=== PATIENT | female | born 1955 | race Caucasian/White ===

== ENCOUNTER → 2016-03-09 | Outpatient (CLI) | payer BC ==
[~2016-03-09] MED LIST: ATVUNK; BACI1OIN22 TOP; ESTRADIOL GT; PRZCUNK
--- NOTE | 2016-03-09 16:40 | MAMMOGRAPHY REPORT ---
BILATERAL DIGITAL SCREENING MAMMOGRAM TOMOSYNTHESIS WITH CAD: 03/09/2016 CLINICAL HISTORY: Routine screening. Patient has no complaints. TECHNIQUE: Breast tomosynthesis in addition to standard 2D mammography was performed. Current study was also evaluated with a Computer Aided Detection (CAD) system. COMPARISON: Comparison is made to exams dated: 01/19/2015 mammogram, 04/25/2011 mammogram, 07/14/2009 mammogram - [facility], 07/13/2008, and 01/07/2007. BREAST COMPOSITION: There are scattered areas of fibroglandular density in both breasts. FINDINGS: No suspicious masses, calcifications, or areas of architectural distortion are noted in e ither breast. There has been no significant interval change compared to prior exams. IMPRESSION: ACR BI-RADS CATEGORY 1: NEGATIVE There is no mammographic evidence of malignancy. A 1 year screening mammogram is recommended. The p atient will receive written notification of the results. Approximately 10% of breast cancers are not detected with mammography. A negative mammographic repor t should not delay biopsy if a clinically suggestive mass is present. Mayra Matt M.D. ah/:03/09/2016 13:57:05 Yeast Washer: Dary Huffman RT(R)(M), [facility] letter sent: Normal 1/2 BI-RADS Code: ACR BI-RADS Category 1: Negative
== END | disposition home or self-care (01) ==
LOC: C.MAMM 09:10
PROVIDERS: ATTEND Obstetrics & Gynecology
DX: Z12.31 Encounter for screening mammogram for malignant neoplasm of breast (principal)

== ENCOUNTER → 2016-12-13 | Outpatient (CLI) | payer BC ==
[2016-12-13 13:52] LABS: ALT/SGPT 12 U/L (12-78); BLOOD UREA NITROGEN 17 mg/dl (7-18); BUN/CREATININE RATIO 18.6 (10-20); CALCIUM 8.8 mg/dl (8.5-10.1); CARBON DIOXIDE 30 mmol/L (21-32); CHLORIDE 105 mmol/L (98-107); CHOLESTEROL 213 mg/dl (0-200); CREATININE 0.91 mg/dl (0.60-1.20); GLUCOSE 90 mg/dl (70-99); POTASSIUM 4.2 mmol/L (3.5-5.1); SODIUM 138 mmol/L (136-145); TRIGLYCERIDES 76 mg/dl (0-150); VERY LOW DENSITY LIPOPROT CALC 15 mg/dl
[2016-12-13 14:03] LABS: ALB/GLOB RATIO 1.1 (0.9-2); ALKALINE PHOSPHATASE 68 U/L (45-117); AST/SGOT 24 U/L (15-37); HDL CHOLESTEROL 70 mg/dl; LDL CHOLESTEROL CALCULATED 128 mg/dl
== END | disposition home or self-care (01) ==
LOC: C.LABBC 10:41
PROVIDERS: ATTEND Internal Medicine
DX: E78.5 Hyperlipidemia, unspecified (principal)

== ENCOUNTER → 2017-03-12 | Outpatient (CLI) | payer BC, OTHER ==
--- NOTE | 2017-03-12 15:07 | MAMMOGRAPHY REPORT ---
BILATERAL DIGITAL SCREENING MAMMOGRAM TOMOSYNTHESIS WITH CAD: 03/12/2017 CLINICAL HISTORY: Routine screening. Patient has no complaints. TECHNIQUE: Bilateral breast tomosynthesis in addition to standard 2D mammography was performed. Curre nt study was also evaluated with a Computer Aided Detection (CAD) system. COMPARISON: Comparison is made to exams dated: 03/09/2016 mammogram, 01/19/2015 mammogram, 04/25/2011 m ammogram, 07/14/2009 mammogram - [facility], 07/13/2008, and 01/17/2007. BREAST COMPOSITION: There are scattered areas of fibroglandular density in both breasts. FINDINGS: There is a 14 mm focal asymmetry in the subareolar versus 6:00 anterior left breast that c ould represent normal fibroglandular tissue although additional spot compression tomosynthesis views and possible ultrasound are recommended. A questionable area of architectural distortion in the 12:0 0 to 1:00 middle one third of the left breast warrant additional spot compression tomosynthesis views and possible ultrasound. No other suspicious mass, architectural distortion or cluster of microcalcifications is seen. Bilate rally. IMPRESSION: ACR BI-RADS CATEGORY 0: INCOMPLETE EVALUATION: NEED ADDITIONAL IMAGING EVALUATION The 14 mm focal asymmetry in the anterior left breast and questionable area of architectural distorti on in the left upper outer quadrant need additional imaging evaluation. The patient will be called to schedule an appointment. Approximately 10% of breast cancers are not detected with mammography. A negative mammographic report should not delay biopsy if a clinically suggestive mass is present. Xin Valentine M.D. ay/:03/12/2017 14:46:30 Tin Tie Machine Operator Automatic: Dary GONZÁLES(R)(M), [facility] letter sent: Addl Imaging 0 BI-RADS Code: ACR BI-RADS Category 0: Incomplete Evaluation: Need Additional Imaging Evaluation
== END | disposition home or self-care (01) ==
LOC: C.MAMM 09:06
PROVIDERS: ATTEND Obstetrics & Gynecology
DX: Z12.31 Encounter for screening mammogram for malignant neoplasm of breast (principal); N64.89 Other specified disorders of breast

== ENCOUNTER → 2017-03-21 | Outpatient (CLI) | payer BC, OTHER ==
--- NOTE | 2017-03-21 15:10 | MAMMOGRAPHY REPORT ---
UNILATERAL LEFT DIGITAL DIAGNOSTIC MAMMOGRAM TOMOSYNTHESIS AND TARGETED LEFT ULTRASOUND: 03/21/2017 CLINICAL HISTORY: Callback from screening mammogram for left breast asymmetry and questionable left b reast architectural distortion. TECHNIQUE: Breast tomosynthesis in addition to standard 2D mammography was performed. Spot compress ion left CC and MLO 2-D and tomosynthesis images were obtained. COMPARISON: Comparison is made to exams dated: 03/12/2017 mammogram, 03/09/2016 mammogram, 01/19/2015 ma mmogram, 04/25/2011 mammogram, 07/14/2009 mammogram - [facility], and 07/13/2008. BREAST COMPOSITION: There are scattered areas of fibroglandular density in the left breast. FINDINGS: The previously described asymmetry within the left subareolar/6:00 breast effaces to a base line appearance on the additional spot compression views, and appears similar to prior exams includin g July 2008 exam. Spot compression views demonstrate an asymmetry in the left 12:00 breast which appe ars stable dating back to the 2006 exam, without clear associated distortion seen on the tomosynthesi s images. Targeted ultrasound was performed of the area of the asymmetry in the left subareolar/6:00 breast as well as the area of questionable distortion in the left 12:00 breast. Sonographically normal tissue is seen in these regions, without evidence of a mass or other suspicious sonographic abnormality. IMPRESSION: ACR BI-RADS CATEGORY 2: BENIGN, TARGETED ULTRASOUND ACR BI-RADS CATEGORY 2: BENIGN 1. The left subareolar breast asymmetry effaces on the additional views, without corresponding sonog raphic abnormality evident. The finding is benign and compatible with normal fibroglandular tissue. 2. No clear architectural distortion seen in the left 12:00 breast on the additional spot compressio n views. An asymmetry in this region appears stable dating back to the 2006 exam mammographically, w ithout corresponding sonographic abnormality evident. Given the long-term stability, the finding is benign and felt to represent normal fibroglandular tissue. There is no mammographic or targeted sonographic evidence of malignancy. A 1 year screening mammogram is recommended. The patient has been verbally notified of the results. Approximately 10% of breast cancers are not detected with mammography. A negative mammographic report should not delay biopsy if a clinically suggestive mass is present. Mayra Matt M.D. ah/:03/21/2017 11:33:25 Institution Librarian: Teo GONZÁLES([place])(M), [facility] letter sent: Normal /2 BI-RADS Code: ACR BI-RADS Category 2: Benign Ultrasound BI-RADS: ACR BI-RADS Category 2: Benign
== END | disposition home or self-care (01) ==
LOC: C.MAMM 11:02
PROVIDERS: ATTEND Obstetrics & Gynecology
DX: R92.8 Other abnormal and inconclusive findings on diagnostic imaging of breast (principal)

== ENCOUNTER 2017-06-20 20:42 | Emergency (ER) | payer OTHER ==
[~2017-06-20] VITALS: Ht 167.6 cm; Wt 65.7 kg
[2017-06-20 20:44] VITALS: Ht 167.6 cm; Wt 65.7 kg
[2017-06-20] MEDS ORDERED: PROPARACAINE HCL 0.5% OP SOLN 15 ML BTL OP STA (21:33)
--- NOTE | 2017-06-20 22:00 | EMERGENCY ROOM VISIT NOTE ---
ED Visit Note First contact with patient: 20:51 The patient was seen and examined with Lulu Beatty PA-C. I agree with the history, physical and findings. Please see the note for disposition and details. I did perform a limited bedside ocular ultrasound of the affected eye and did not see any obvious retinal detachment. A nondilated funduscopic examination by me did not reveal any obvious abnormalities either. By the history I suspect a possible vitreous detachment. Ophthalmology was consulted. The patient will follow-up tomorrow in the office.
--- NOTE | 2017-06-20 22:16 | EMERGENCY ROOM VISIT NOTE ---
History First contact with patient: 20:51 Chief Complaint: EYE ASSESSMENT Stated Complaint: EYE-LIGHTS FLASHING-FLOATERS History of Present Illness The patient is a 62 year old female who presents to the Emergency Room with complaints of problems with her right eye that started earlier today. The patient reports getting out of bed. She accidentally tripped striking the left side of her head on the dresser. She did not lose consciousness. She denies any headache or neck pain. No dizziness. The patient reports taking a nap. When she woke up, she saw a very large floater in the lateral aspect of her right eye. She then reports seeing flashing light in the right lateral aspect of her vision in the right eye throughout the night. This is what prompted her to come to the emergency department for evaluation. She also reports some sensitivity to light. No foreign body sensation. She sometimes wears glasses for distance. She does not wear contact lenses. Review of Systems 6 system review negative. Please see pertinent positives in the history of present illness section. Past Medical/Surgical History Depression Social History Smoking Status: Never Smoker Occupation Status: employed Current/Historical Medications Scheduled Bacitracin Oph (Bacitracin Oph), 1 APPLN TOP TID Miscellaneous Medications , 0.025 MG GT Fluoxetine (Prozac Unknown Dose) Lorazepam (Ativan Unknown Dose) Physical Exam Vital Signs Date Time Temp Pulse Resp B/P (MAP) Pulse Ox O2 Delivery O2 Flow Rate FiO2 06/20/17 23:20 36.5 73 20 109/67 96 06/20/17 20:44 36.5 73 20 109/67 96 Room Air Right Eye Acuity: 20/50 (effected eye) Left Eye Acuity: 20/25 Physical Exam VITALS: Vitals are noted on the nurse's note and reviewed by myself. Vital signs stable. GENERAL: 62-year-old female, in no acute distress, nondiaphoretic, well- developed well-nourished. SKIN: The skin was without rashes, erythema, edema, or bruising. HEAD: Normocephalic atraumatic. EYES: Pupils equal round and reactive to light and accommodation. Conjunctivae without injection, sclerae without icterus. Extraocular movements intact. Insert Slit Lamp Exam Slit Lamp Examination was performed of the right eye(s). Alcaine drops were applied to the affected eye(s) for proper anesthetization. The affected eye(s) were stained with Fluorescein stain to precipitate adequate visualization of any conjunctival/scleral excoriations or ulcers. The patients face was comfortably rested on the chin guard of the slit lamp apparatus. Examination with regular light reveals no significant abnormalities of the cornea or anterior chamber. Insert Optic Tonometry Alcaine drops were applied to the eyes bilaterally for adequate anesthetization. A clean tip protector was applied to the Tonometer. The Tonometry pen was properly calibrated prior to attaining orbital pressures. The pressures in the LEFT eye were found to be 13 and 15. The pressures in the RIGHT eye were found to be 12 and 13 patient tolerated the procedure well and no complications were met. MUSCULOSKELETAL: Strength 5/5 throughout. NEURO: Patient was alert and oriented to person place and time. Normal sensation to touch. No focal neurological deficits. Medical Decision & Procedures ED Course The patient was seen and examined by myself and my supervising physician The case was discussed with ophthalmology The patient was reassessed and resting comfortably. We thoroughly reviewed discharge instructions. She voiced understanding. She was comfortable being discharged home. The patient was discharged in fair condition Medical Decision Differential diagnosis: Retinal detachment, uveitis, corneal abrasion, corneal laceration, globe rupture, glaucoma, foreign body This patient is a 62-year-old female presents to the emergency department with complaints of floaters and flashing lights in the lateral aspect of her right eye. On exam, I cannot find any abnormalities with the anterior chamber. No signs of uveitis or hyphema. No signs of foreign body or abrasion. Dr. Butler performed an ultrasound of the eye. There were no signs of retinal detachment. These findings were discussed with Dr. Boyd, ophthalmology. His thought was this is possibly a vitreous detachment. She will avoid sudden head movements and rest. She will call the nursing program chair office first thing tomorrow morning for a follow-up appointment. The patient was comfortable with this plan, and she was discharged in good condition This chart was completed in part utilizing [employer] Speech Voice Recognition software. Attempts were made to minimize the grammatical errors, random word insertions, pronoun errors and incomplete sentences. Any formal questions or concerns about the content, text or information contained within the body of this dictation should be directly addressed to the provider for clarification. Medication Reconcilliation Current Medication List: was personally reviewed by me Blood Pressure Screening Patient's blood pressure: Normal blood pressure Impression Primary Impression: Floaters in visual field Departure Information Dispostion Home / Self-Care Condition GOOD Referrals Dary Gaitan D.O. (PCP) Aries Boyd MD Patient Instructions My [facility] Additional Instructions Please rest. No strenuous activity tonight. Avoid sudden head movements. Please call Dr. Boyd's office first thing tomorrow morning for a follow-up appointment. Please do not hesitate to return to the emergency department with any new or concerning symptoms; especially, decreased vision or severe pain
[2017-06-20 23:20] VITALS: BP 109/67; PULSE 73; TEMP 36.5; O2SAT 96
== END 2017-06-20 23:21 | disposition home or self-care (01) ==
LOC: C.EDB 20:43 → C.EDD 23:21
DX: H57.11 Ocular pain, right eye (principal); W19.XXXA Unspecified fall, initial encounter

== ENCOUNTER 2024-06-23 06:00 | Observation (INO) ==
[2024-06-23] MEDS: ONDANSETRON INJ 2 MG/ML 2 ML VIAL IV STA (06:29)
[2024-06-23] MEDS: MoRPHine SULFATE 4 MG/ML 1 ML CARP\\VIAL IV STA ×2 (06:29→07:27)
[2024-06-23] MEDS: SODIUM CHLORIDE 0.9% 1,000 ML IV ONE (06:29)
--- NOTE | 2024-06-23 06:29 | Emergency Department Note ---
Impression & Plan Elevated troponin Admission ED Provider Note HPI: History obtained from patient. The patient is a 69-year-old female with history of chronic pain, fibromyalgia, hyperlipidemia, who presents to the emergency department with a chief complaint of abdominal pain, diarrhea, and vomiting. Patient states she has had the symptoms for about the past 3 to 4 hours. Patient denies any chest pain or shortness of breath. On arrival here to the ED the patient is moaning in discomfort from the pain and the nausea. She is able to answer my questions appropriately, she is saturating well on room air and she is otherwise hemodynamically stable on arrival. ROS: - Per HPI Differential Diagnosis: Viral gastroenteritis, acute appendicitis, acute cholecystitis, diverticulitis flare, acute colitis, ACS, aortic dissection, amongst other potential pathologies. *Outpatient medications and allergy history reviewed. 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 Lab work shows a mild leukocytosis at 13.13, hemoglobin is normal, platelet count is normal, CMP shows a mild hypokalemia, serum bicarbonate level is reduced at 17. Troponin is elevated at 81 although patient denies any chest pain or shortness of breath. EKG per my interpretation does not show any acute ischemic changes. CT imaging of the abdomen and pelvis was obtained, there are changes consistent with a nonspecific colitis. I suspect she likely has a viral gastroenteritis of some sort. Patient is also noted to have dilatation of the common bile duct although she has no transaminitis and her bilirubin is normal. There is no specific lesion or stone noted per the interpreting radiologist. 2+ ketones are noted on urinalysis but no obvious infection. Given the elevation in the patient's troponin with her abdominal pain, she will be admitted to the hospital for further management. Patient states that she feels improved on my reassessment, she is in agreement for admission, case was discussed with the on-call midlevel provider for [facility] and the patient was placed for admission in stable condition for further care to the service of the [facility] hospitalist (Dr. Redmond). Consultants/Discussions held with other healthcare providers: - Hospitalist, Dr. Redmond Disposition discussion held by myself with: - Patient Diagnosis: 1. Abdominal pain, acute 2. Elevated troponin, acute, nonspecific 3. Nausea and vomiting, acute Disposition: Admission Stephon Nice DO Emergency Medicine Past Med/Surg History Problem List (Updated 06/23/24 @ 13:26 by Stephon Nice DO) Elevated troponin (Acute) Common bile duct dilatation Colitis Chronic pain (Acute) Medical History Abnormal mammogram Cervical high risk human papillomavirus (HPV) DNA test positive Diastasis of muscle Hormone replacement therapy (HRT) Hyperlipidemia Depression Fibromyalgia Atypical glandular cells on vaginal Papanicolaou smear HPV negative History of Lyme disease History of arthritis Surgical History History of right cataract surgery Hx of thumb surgery Hx of ventral hernia repair History of esophagogastroduodenoscopy (EGD) Hx of nasal septoplasty Hx of colonoscopy H/O colposcopy with cervical biopsy History of hysterectomy, supracervical History of back surgery H/O bilateral oophorectomy Family History Mother Sleep apnea Hyperlipidemia Daughter Bipolar disorder Father Myocardial infarction, Onset Age: 73 Pituitary carcinoma Grandmother (Maternal) Uterine cancer Denies family history of Ovarian cancer Breast cancer Colorectal cancer Social History Smoking Status: Former smoker Second Hand Exposure: No; Do You Dip or Chew Tobacco: No; Hx Alcohol Use: No Hx Substance Use: No Preferred Language: Kiswahili Communication Ability: Effective 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 Operator Required: No Beliefs That Will Affect Care: None Current Living Situation: Alone Feels Safe at Home: Yes Assistive Devices: Glasses Allergies Allergies Allergy/AdvReac Type Severity Reaction Status Date / Time meloxicam [From Mobic] AdvReac Diarrhea Verified 06/23/24 08:15 Home Meds Home Medications Medication Instructions Recorded Confirmed fluoxetine 40 mg capsule 40 mg PO QAM 03/13/19 06/23/24 estradiol 0.05 mg/24 hr semiweekly 0.05 patch topical Q3D 07/27/22 06/23/24 transdermal patch trazodone 50 mg tablet 50 mg PO HS 07/27/22 06/23/24 Results & Data (ED) Vital Signs Vital Signs - 24 hr 06/23/24 05:47 06/23/24 06:12 06/23/24 06:30 Temperature Temperature Source Pulse Rate 63 72 56 L Pulse Rate [Apical] Pulse Rhythm Regular Pulse Strength Normal Respiratory Rate 19 19 Respiratory Effort / Characteristics Non-Labored Spontaneous Respiratory Depth Normal Respiratory Pattern Regular Blood Pressure 124/66 139/77 Blood Pressure [Left Arm] Blood Pressure Mean 85 110 Blood Pressure Mean [Left Arm] Blood Pressure Position Sitting Pulse Oximetry 99 100 Oxygen Delivery Method Room Air Room Air Sepsis Recent Fever Within 48 Hours No Sepsis New/Unexplained Change in Mental Status N/A Sepsis Action Taken by Nursing No Action Required 06/23/24 09:00 06/23/24 10:14 06/23/24 11:13 Temperature Temperature Source Pulse Rate 84 Pulse Rate [Apical] 51 L 72 Pulse Rhythm Pulse Strength Respiratory Rate 12 19 Respiratory Effort / Characteristics Respiratory Depth Respiratory Pattern Blood Pressure Blood Pressure [Left Arm] 118/59 L 92/52 L Blood Pressure Mean Blood Pressure Mean [Left Arm] 78 65 Blood Pressure Position Pulse Oximetry 94 95 Oxygen Delivery Method Room Air Room Air Sepsis Recent Fever Within 48 Hours Sepsis New/Unexplained Change in Mental Status Sepsis Action Taken by Nursing 06/23/24 12:54 06/23/24 13:01 Temperature 36.4 C L 36.4 C L Temperature Source Oral Oral Pulse Rate 68 Pulse Rate [Apical] 68 Pulse Rhythm Pulse Strength Respiratory Rate 23 23 Respiratory Effort / Characteristics Respiratory Depth Respiratory Pattern Blood Pressure 106/72 Blood Pressure [Left Arm] 106/72 Blood Pressure Mean Blood Pressure Mean [Left Arm] 83 Blood Pressure Position Pulse Oximetry 98 98 Oxygen Delivery Method Room Air Room Air Sepsis Recent Fever Within 48 Hours Sepsis New/Unexplained Change in Mental Status Sepsis Action Taken by Nursing Laboratory Data 06/23/24 06:40 06/23/24 06:40 Lab Results 06/23/24 06/23/24 06/23/24 Range/Units 06:40 08:27 08:32 WBC 13.13 H (4.8-10.8) K/ul RBC 4.73 (4.20-5.40) M/uL Hgb 13.5 (12.0-16.0) g/dl Hct 39.6 (37.0-47.0) % MCV 83.7 (80.0-100.0) fL MCH 28.5 (25.0-34.0) pg MCHC 34.1 (32.0-36.0) g/dL RDW Std Deviation 38.5 (36.4-46.3) fL RDW Coeff of Kenna 12.6 (11.5-14.5) % Plt Count 343 (130-400) K/uL MPV 9.8 (9.4-12.4) fL Immature Gran % (Auto) 0.4 % Neut % (Auto) 85.6 % Lymph % (Auto) 8.5 % [place] % (Auto) 4.8 % Eos % (Auto) 0.2 % Baso % (Auto) 0.5 % Neut # (Auto) 11.26 H (1.40-6.50) K/uL Lymph # (Auto) 1.11 L (1.20-3.40) K/uL [place] # (Auto) 0.63 H (0.11-0.59) K/uL Eos # (Auto) 0.02 (0.00-0.50) K/uL Baso # (Auto) 0.06 (0.00-0.20) K/uL Immature Gran # (Auto) 0.05 (0.01-0.20) K/uL PT 11.3 (9.0-12.0) Seconds INR 1.0 (0.9-1.1) Sodium 141 (136-145) mmol/L Potassium 3.2 L (3.5-5.1) mmol/L Chloride 109 H (98-107) mmol/L Carbon Dioxide 17 L (21-32) mmol/L Anion Gap 15 H (3-11) BUN 17 (6-23) mg/dl Creatinine 0.96 (0.6-1.2) mg/dl Est Cr Clr Drug Dosing 53.2 ml/min eGFR 64.85 BUN/Creatinine Ratio 17.7 (10-20) Glucose 196 H (70-99(Fasting)) mg/dl Calcium 9.0 (8.6-10.3) mg/dl Total Bilirubin 0.6 (0.2-1.0) mg/dl AST 25 (13-39) U/L ALT 7 (7-52) U/L Alkaline Phosphatase 60 (34-104) U/L Troponin I High Sens 81.0 H* 95.1 H* D (0-14) pg/ml Total Protein 6.8 (6.0-8.3) gm/dl Albumin 4.3 (3.4-5.0) gm/dl Globulin 2.5 (2.5-4.0) gm/dl Albumin/Globulin Ratio 1.7 (0.9-2) Lipase 24 (11-82) U/L Urine Color Yellow Urine Appearance Clear (Clear) Urine pH 7.5 (4.5-7.5) Ur Specific Wiley 1.034 H (1.000-1.030) Urine Protein Negative (Negative) Urine Glucose (UA) Negative (Negative) Urine Ketones 2+ H (Negative) Urine Blood Negative (Negative) Urine Nitrite Negative (Negative) Urine Bilirubin Negative (Negative) Urine Urobilinogen Negative (Negative) Ur Leukocyte Esterase 1+ H (Negative) Urine WBC (Auto) 0-5 (0-5) /hpf Urine RBC (Auto) 0-2 (0-2) /hpf U Hyaline Cast (Auto) 0-2 (0-2) /lpf U Epithel Cells (Auto) 11-20 H (0-2) /hpf Urine Bacteria (Auto) None Seen (None Seen) Administered Medications Discontinued Medications Sodium Chloride (Nss) 1,000 mls @ 999 mls/hr IV .Q1H1M ONE Stop: 06/23/24 07:25 Last Infusion: 06/23/24 07:48 Dose: Infused Documented By: Admin: 06/23/24 06:29 Dose: 999 mls/hr Documented By: STEFAN Ioversol (Optiray 320 100ml) 94 ml IV ONCE ONE Stop: 06/23/24 07:53 Last Admin: 06/23/24 07:52 Dose: 94 ml Documented By: JAVIER Morphine Sulfate (Morphine Sulfate 4 Mg/Ml 1 Ml Carp\Vial) 4 mg IV NOW STA Stop: 06/23/24 06:25 Last Admin: 06/23/24 06:29 Dose: 4 mg Documented By: STEFAN Morphine Sulfate (Morphine Sulfate 4 Mg/Ml 1 Ml Carp\Vial) 4 mg IV NOW STA Stop: 06/23/24 07:27 Last Admin: 06/23/24 07:27 Dose: 4 mg Documented By: CHELY Ondansetron HCl (Ondansetron Inj 2 Mg/Ml 2 Ml Vial) 4 mg IV NOW STA Stop: 06/23/24 06:25 Last Admin: 06/23/24 06:29 Dose: 4 mg Documented By: STEFAN Imaging Data Radiologist's Impression: Abdomen/Pelvis CT 06/23/24 07:[address] WITH IV CONTRAST CT DOSE: 648.71 mGy.cm HISTORY: Acute mid abdominal pain with nausea, vomiting and diarrhea mid abd pain, N/V/D TECHNIQUE: Multiaxial CT images of the abdomen and pelvis were performed following the IV administration of 94 cc of Optiray, A dose lowering technique was utilized adhering to the principles of ALARA. COMPARISON STUDY: None. FINDINGS: Small pericardial effusion. There is no pneumatosis or pneumoperitoneum. Unremarkable spleen. There is mild nodular thickening of the adrenal glands suggestive of hyperplasia. Mildly atrophic pancreas with 1.2 cm hypodense focus in the uncinate process, possibly a side branch IPMN. 9 mm probable cyst within the right hepatic lobe on image 67 series 3. There are at least 4 indeterminate mostly subcentimeter hypodense foci of the liver measuring up to 1.2 cm on the right hepatic lobe on image 64 series 3. There is patency of the hepatic and portal veins. 8 mm hyperdense focus noted within the tavo hepatis near the gallbladder neck. Mild intrahepatic biliary ductal dilation. Common bile duct is dilated measuring 1.2 cm. No obstructing biliary stone or lesion identified. No hydronephrosis. Unremarkable urinary bladder. No pelvic lesions. Atherosclerosis of the aorta without aneurysm. Tiny hiatal hernia. No bowel obstruction. There is mild wall thickening noted throughout the majority of the large bowel with areas of mild pericolonic stranding, most pronounced in the transverse and descending colon. Normal appendix. Tiny fat filled umbilical hernia. Degenerative changes of the lower lumbar spine. IMPRESSION: 1. Findings suggestive of a nonspecific colitis, likely infectious or inflammatory. 2. No bowel obstruction or pneumoperitoneum. 3. Possible cholelithiasis without CT evidence of acute cholecystitis 4. Dilated common bile duct without obstructing stone or lesion identified. Correlate with serum bilirubin recommended. 5. There are several indeterminate small hepatic lesions which could be further evaluated with a nonemergent follow-up MRI of the liver with and without IV contrast ACT 112: Negative or not required by law. The above report was generated using voice recognition software. It may contain grammatical, syntax or spelling errors. Electronically signed by: Amado Tam M.D. 06/23/2024 8:30 AM Chest X-Ray 06/23/24 07:32 XR chest 1V portable CLINICAL HISTORY: N/V COMPARISON STUDY: 05/22/2009 FINDINGS: Heart size and pulmonary vasculature are normal. No effusion, consolidation, or pneumothorax. IMPRESSION: No acute findings. ACT 112: Negative or not required by law. Electronically signed by: Leo Gould M.D. 06/23/2024 8:09 AM Discharge Plan Visit Data Chief Complaint: Abdominal Pain Stated Complaint: UPPER ABDOMINAL PAIN, N/V/D ED Provider: Stephon Nice Discharge Problem: Elevated troponin Patient Disposition: Admitted As Inpatient Discharge Instructions Interventions: ED Discharge Assessment Last Done: 06/23/24 13:01 Forms Stand Alone Forms: [employer] Prescriptions Prescriptions: No Action fluoxetine 40 mg capsule 40 mg PO QAM trazodone 50 mg tablet 50 mg PO HS estradiol 0.05 mg/24 hr patch semiweekly 0.05 patch topical Q3D Rx Instructions: APPLY ONCE PATCH TWICE WEEKLY. Referrals Referrals: PCP,NO [Physician] -
[2024-06-23 06:55] LABS: Basophils # (auto) 0.06 K/uL (0.00-0.20); Basophils % (auto) 0.5 %; Eosinophils # (auto) 0.02 K/uL (0.00-0.50); Eosinophils % (auto) 0.2 %; Hematocrit (blood only) 39.6 % (37.0-47.0); Hemoglobin 13.5 g/dl (12.0-16.0); Immature Granulocytes # (auto) 0.05 K/uL (0.01-0.20); Immature Granulocytes % (auto) 0.4 %; Lymphocytes # (auto) 1.11 K/uL (1.20-3.40); Lymphocytes % (auto) 8.5 %; Mean Corpuscular Hemoglobin 28.5 pg (25.0-34.0); Mean Corpuscular Hgb Conc 34.1 g/dL (32.0-36.0); Mean Corpuscular Volume 83.7 fL (80.0-100.0); Mean Platelet Volume 9.8 fL (9.4-12.4); Monocytes # (auto) 0.63 K/uL (0.11-0.59); Monocytes % (auto) 4.8 %; Neutrophils # (auto) 11.26 K/uL (1.40-6.50); Neutrophils % (auto) 85.6 %; Platelet Count 343 K/uL (130-400); RDW Coefficient of Variation 12.6 % (11.5-14.5); RDW Standard Deviation 38.5 fL (36.4-46.3); Red Blood Count 4.73 M/uL (4.20-5.40); White Blood Count 13.13 K/ul (4.8-10.8)
[2024-06-23 07:16] LABS: Albumin Globulin Ratio 1.7 (0.9-2); Albumin Level 4.3 gm/dl (3.4-5.0); BUN Creatinine Ratio 17.7 (10-20); Bilirubin,Total 0.6 mg/dl (0.2-1.0); Creatinine Clr Calc Pharmacy 53.2 ml/min; Globulin 2.5 gm/dl (2.5-4.0); Potassium 3.2 mmol/L (3.5-5.1); Total Protein 6.8 gm/dl (6.0-8.3)
[2024-06-23 07:26] LABS: Prothrombin Time 11.3 Seconds (9.0-12.0)
[2024-06-23] MEDS: OPTIRAY 320 100ml IV ONE (07:52)
--- NOTE | 2024-06-23 08:10 | XRay Report ---
XR chest 1V portable CLINICAL HISTORY: N/V COMPARISON STUDY: 05/22/2009 FINDINGS: Heart size and pulmonary vasculature are normal. No effusion, consolidation, or pneumothora x. IMPRESSION: No acute findings. ACT 112: Negative or not required by law. Electronically signed by: Leo Gould M.D. 06/23/2024 8:09 AM
--- NOTE | 2024-06-23 08:32 | CT Scan Report ---
ABDOMEN AND PELVIS CT WITH IV CONTRAST CT DOSE: 648.71 mGy.cm HISTORY: Acute mid abdominal pain with nausea, vomiting and diarrhea mid abd pain, N/V/D TECHNIQUE: Multiaxial CT images of the abdomen and pelvis were performed following the IV administrat ion of 94 cc of Optiray, A dose lowering technique was utilized adhering to the principles of ALARA. COMPARISON STUDY: None. FINDINGS: Small pericardial effusion. There is no pneumatosis or pneumoperitoneum. Unremarkable spleen. There is mild nodular thickening of the adrenal glands suggestive of hyperplasia . Mildly atrophic pancreas with 1.2 cm hypodense focus in the uncinate process, possibly a side branc h IPMN. 9 mm probable cyst within the right hepatic lobe on image 67 series 3. There are at least 4 i ndeterminate mostly subcentimeter hypodense foci of the liver measuring up to 1.2 cm on the right hep atic lobe on image 64 series 3. There is patency of the hepatic and portal veins. 8 mm hyperdense foc us noted within the tavo hepatis near the gallbladder neck. Mild intrahepatic biliary ductal dilatio n. Common bile duct is dilated measuring 1.2 cm. No obstructing biliary stone or lesion identified. No hydronephrosis. Unremarkable urinary bladder. No pelvic lesions. Atherosclerosis of the aorta with out aneurysm. Tiny hiatal hernia. No bowel obstruction. There is mild wall thickening noted throughou t the majority of the large bowel with areas of mild pericolonic stranding, most pronounced in the tr ansverse and descending colon. Normal appendix. Tiny fat filled umbilical hernia. Degenerative change s of the lower lumbar spine. IMPRESSION: 1. Findings suggestive of a nonspecific colitis, likely infectious or inflammatory. 2. No bowel obstruction or pneumoperitoneum. 3. Possible cholelithiasis without CT evidence of acute cholecystitis 4. Dilated common bile duct without obstructing stone or lesion identified. Correlate with serum bili adames recommended. 5. There are several indeterminate small hepatic lesions which could be further evaluated with a none mergent follow-up MRI of the liver with and without IV contrast ACT 112: Negative or not required by law. The above report was generated using voice recognition software. It may contain grammatical, syntax o r spelling errors. Electronically signed by: Amado Tam M.D. 06/23/2024 8:30 AM
--- NOTE | 2024-06-23 09:14 | Electrocardiogram Report ---
Test Reason : Blood Pressure : */* mmHG Vent. Rate : 81 BPM Atrial Rate : 81 BPM P-R Int : 164 ms QRS Dur : 80 ms QT Int : 478 ms P-R-T Axes : 77 59 69 degrees QTcB Int : 555 ms Normal sinus rhythm Prolonged QT Abnormal ECG When compared with ECG of 03-Sep-2013 16:50, QT has lengthened Confirmed by Silviano Delvalle ([id number]) on 06/23/2024 9:14:27 AM Referred By: Confirmed By: Silviano Delvalle
[2024-06-23 09:41] LABS: Appearance Urine Clear (Clear); Bacteria Urine Automated None Seen (None Seen); Bilirubin Urine Negative (Negative); Blood Urine Negative (Negative); Cast Urine Automated 0-2 /lpf (0-2); Color Urine Yellow; Glucose Urine UA Negative (Negative); Ketones Urine 2+ (Negative); Leukocyte Esterase Urine 1+ (Negative); Nitrite Urine Negative (Negative); Protein Urine Negative (Negative); RBC Urine Automated 0-2 /hpf (0-2); Specific Gravity Urine 1.034 (1.000-1.030); Urobilinogen Urine Negative (Negative); WBC Urine Automated 0-5 /hpf (0-5); pH Urine 7.5 (4.5-7.5)
--- NOTE | 2024-06-23 10:25 | History & Physical Report ---
Date of Service June 23, 2024 Assessment & Plan (1) Colitis: (2) Common bile duct dilatation: (3) Elevated troponin: (4) Lesion of liver: (5) Depression: Plan This is a 69 y/o female with fibromyalgia, depression, and chronic pain who presents to the ED today with abdominal pain, vomiting, and diarrhea that started abruptly around 2:30 am today. Work-up in the ED revealed leukocytosis with white count of 13.13. CT abd/pel showed non-specific colitis, hepatic lesions, and CBD dilation. Outpatient records reviewed extensively (see HPI) - liver lesions and CBD dilation are not new, present on EUS and MRI in 2019. Pt was due for f/u MRI pancreas/MRCP in 2021 but never had this completed. Initial troponin elevated at 81, repeat 95.1. Pt was referred for observation and further evaluation and management. #Abdominal pain/vomiting/diarrhea #Nonspecific colitis on CT - suspect infectious etiology - Observe on med telemetry - NPO for now - surgical consult noted and appreciated - RUQ US pending - PRN anti-emetics - IVF - Pain control #Liver lesions - noted on prior EUS - Will need outpatient f/u, which pt is agreeable to #Elevated troponin - suspect demand related to acute illness - Trend Q6 hours - EKG in the AM - ECHO - Lipid panel, A1c in the AM #Hypokalemia - Replete with 40 mEq and recheck in the AM #Depression - Chronic, stable - continue fluoxetine Pt seen and reviewed with collaborating physician, Dr. Redmond. Plan of care discussed and as outlined above. Code status: full code DVT prophylaxis: heparin subQ I spent a total of 62 minutes coordinating, documenting and providing care for this patient excluding time spent in the performance of separately billed services or time spent by another provider/QHP. Ash Haider PA-C History of Present Illness Chief Complaint: abdominal pain, vomiting, diarrhea Primary Care Provider: Tiarra Trinh PA-C This is a 69 y/o female with fibromyalgia, depression, and chronic pain who presents to the ED today with abdominal pain, vomiting, and diarrhea that started abruptly around 2:30 am today. She reports being in her usual state of health yesterday. This morning around 2:30 she was awoken from sleep with the urge to defecate. Went to the bathroom and had large BM. Shortly thereafter, she developed nausea and multiple episodes of emesis then epigastric pain and another episode of diarrhea. She denies fevers, chills, sweats, chest pain, palpitations. She has a history of "bowel issues" but is typically able to control these with her diet (follows a Mediterranean diet at baseline). She notes some fatigue but also spent yesterday working around the house. In the ED, she received ondansetron and morphine with improvement of her symptoms. She denies prior cardiac history. She works out regularly and has noted no recent change in her exercise tolerance. 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 Follow-up MRI with MRCP recommended in 6 months for reassessment. Liver lesions are compatible with cysts and hemangiomas. EUS 02/20/20 - EGD completely normal. Duodenal biopsies obtained to rule out celiac disease. - Small cysts in head of pancreas; benign in appearance, consistent with IPMN. No pancreatic masses. - No pancreatic mass. Mild atrophy of pancreas. Dilation in the CBD, which measured up to 8 mm Colonoscopy 12/15/19 - fair preparation, stool in entire colon. exam o/w normal on direct and retroflexion views. Recommended to have repeat in 2 years. Allergies Allergy/AdvReac Type Severity Reaction Status Date / Time meloxicam [From Mobic] AdvReac Diarrhea Verified 06/23/24 08:15 Home Medications Medication Instructions Recorded Confirmed Type fluoxetine 40 mg capsule 40 mg PO QAM 03/13/19 06/23/24 History estradiol 0.05 mg/24 hr semiweekly 0.05 patch topical Q3D 07/27/22 06/23/24 History transdermal patch trazodone 50 mg tablet 50 mg PO HS 07/27/22 06/23/24 History Past Med/Surg History Problem List (Updated 06/23/24 @ 13:43 by Adrianna Haider PA-C) Lesion of liver Elevated troponin (Acute) Common bile duct dilatation Colitis Chronic pain (Acute) Medical History Abnormal mammogram Cervical high risk human papillomavirus (HPV) DNA test positive Diastasis of muscle Hormone replacement therapy (HRT) Hyperlipidemia Depression Fibromyalgia Atypical glandular cells on vaginal Papanicolaou smear HPV negative History of Lyme disease History of arthritis Surgical History History of right cataract surgery Hx of thumb surgery Hx of ventral hernia repair History of esophagogastroduodenoscopy (EGD) Hx of nasal septoplasty Hx of colonoscopy H/O colposcopy with cervical biopsy History of hysterectomy, supracervical History of back surgery H/O bilateral oophorectomy Family History Mother Sleep apnea Hyperlipidemia Daughter Bipolar disorder Father Myocardial infarction, Onset Age: 73 Pituitary carcinoma Grandmother (Maternal) Uterine cancer Denies family history of Ovarian cancer Breast cancer Colorectal cancer Social History Smoking Status: Former smoker Second Hand Exposure: No; Do You Dip or Chew Tobacco: No; Hx Alcohol Use: No Hx Substance Use: No Preferred Language: Luxembourger Communication Ability: Effective Retail Greeter Required: No Beliefs That Will Affect Care: None Current Living Situation: Alone Other Information That Helps Us Care for You: No Feels Safe at Home: Yes Safety Concerns: Feels Safe At This Time Assistive Devices: Glasses Review of Systems Review of Systems: All systems reviewed & are unremarkable except as noted in Subjective Physical Exam Physical Exam: General: awake, alert, NAD HEENT: no scleral icterus, moist oral mucosa Neck: supple, trachea midline Heart: RRR, no M/G/R Lungs: CTA bilaterally, no W/R/R Abdomen: soft, mild epigastric tenderness, +BS, no guarding or rebound Extremities: no pedal edema, distal pulses intact and equal Skin: warm, no jaundice Neurologic: Ox3, no confusion or dysarthria, moving all extremities, no focal deficit Results & Data Results & Data Vital Signs (Past 12 Hours) Vital Signs Pulse Pulse Resp BP BP Pulse Ox O2 Del Method 06/23/24 10:14 84 06/23/24 09:00 51 L 12 118/59 L 94 Room Air 06/23/24 06:30 56 L 19 139/77 100 Room Air 06/23/24 06:12 72 06/23/24 05:47 63 19 124/66 99 Room Air Laboratory Results Lab Results 06/23/24 06/23/24 06/23/24 Range/Units 06:40 08:27 08:32 WBC 13.13 H (4.8-10.8) K/ul RBC 4.73 (4.20-5.40) M/uL Hgb 13.5 (12.0-16.0) g/dl Hct 39.6 (37.0-47.0) % MCV 83.7 (80.0-100.0) fL MCH 28.5 (25.0-34.0) pg MCHC 34.1 (32.0-36.0) g/dL RDW Std Deviation 38.5 (36.4-46.3) fL RDW Coeff of [place] 12.6 (11.5-14.5) % Plt Count 343 (130-400) K/uL MPV 9.8 (9.4-12.4) fL Immature Gran % (Auto) 0.4 % Neut % (Auto) 85.6 % Lymph % (Auto) 8.5 % [place] % (Auto) 4.8 % Eos % (Auto) 0.2 % Baso % (Auto) 0.5 % Neut # (Auto) 11.26 H (1.40-6.50) K/uL Lymph # (Auto) 1.11 L (1.20-3.40) K/uL [place] # (Auto) 0.63 H (0.11-0.59) K/uL Eos # (Auto) 0.02 (0.00-0.50) K/uL Baso # (Auto) 0.06 (0.00-0.20) K/uL Immature Gran # (Auto) 0.05 (0.01-0.20) K/uL PT 11.3 (9.0-12.0) Seconds INR 1.0 (0.9-1.1) Sodium 141 (136-145) mmol/L Potassium 3.2 L (3.5-5.1) mmol/L Chloride 109 H (98-107) mmol/L Carbon Dioxide 17 L (21-32) mmol/L Anion Gap 15 H (3-11) BUN 17 (6-23) mg/dl Creatinine 0.96 (0.6-1.2) mg/dl Est Cr Clr Drug Dosing 53.2 ml/min eGFR 64.85 BUN/Creatinine Ratio 17.7 (10-20) Glucose 196 H (70-99(Fasting)) mg/dl Calcium 9.0 (8.6-10.3) mg/dl Total Bilirubin 0.6 (0.2-1.0) mg/dl AST 25 (13-39) U/L ALT 7 (7-52) U/L Alkaline Phosphatase 60 (34-104) U/L Troponin I High Sens 81.0 H* 95.1 H* D (0-14) pg/ml Total Protein 6.8 (6.0-8.3) gm/dl Albumin 4.3 (3.4-5.0) gm/dl Globulin 2.5 (2.5-4.0) gm/dl Albumin/Globulin Ratio 1.7 (0.9-2) Lipase 24 (11-82) U/L Urine Color Yellow Urine Appearance Clear (Clear) Urine pH 7.5 (4.5-7.5) Ur Specific [place] 1.034 H (1.000-1.030) Urine Protein Negative (Negative) Urine Glucose (UA) Negative (Negative) Urine Ketones 2+ H (Negative) Urine Blood Negative (Negative) Urine Nitrite Negative (Negative) Urine Bilirubin Negative (Negative) Urine Urobilinogen Negative (Negative) Ur Leukocyte Esterase 1+ H (Negative) Urine WBC (Auto) 0-5 (0-5) /hpf Urine RBC (Auto) 0-2 (0-2) /hpf U Hyaline Cast (Auto) 0-2 (0-2) /lpf U Epithel Cells (Auto) 11-20 H (0-2) /hpf Urine Bacteria (Auto) None Seen (None Seen) Diagnostic Findings Abdomen/Pelvis CT 06/23/24 07:[address] WITH IV CONTRAST CT DOSE: 648.71 mGy.cm HISTORY: Acute mid abdominal pain with nausea, vomiting and diarrhea mid abd pain, N/V/D TECHNIQUE: Multiaxial CT images of the abdomen and pelvis were performed following the IV administration of 94 cc of Optiray, A dose lowering technique was utilized adhering to the principles of ALARA. COMPARISON STUDY: None. FINDINGS: Small pericardial effusion. There is no pneumatosis or pneumoperitoneum. Unremarkable spleen. There is mild nodular thickening of the adrenal glands suggestive of hyperplasia. Mildly atrophic pancreas with 1.2 cm hypodense focus in the uncinate process, possibly a side branch IPMN. 9 mm probable cyst within the right hepatic lobe on image 67 series 3. There are at least 4 indeterminate mostly subcentimeter hypodense foci of the liver measuring up to 1.2 cm on the right hepatic lobe on image 64 series 3. There is patency of the hepatic and portal veins. 8 mm hyperdense focus noted within the tavo hepatis near the gallbladder neck. Mild intrahepatic biliary ductal dilation. Common bile duct is dilated measuring 1.2 cm. No obstructing biliary stone or lesion identified. No hydronephrosis. Unremarkable urinary bladder. No pelvic lesions. Atherosclerosis of the aorta without aneurysm. Tiny hiatal hernia. No bowel obstruction. There is mild wall thickening noted throughout the majority of the large bowel with areas of mild pericolonic stranding, most pronounced in the transverse and descending colon. Normal appendix. Tiny fat filled umbilical hernia. Degenerative changes of the lower lumbar spine. IMPRESSION: 1. Findings suggestive of a nonspecific colitis, likely infectious or inflammatory. 2. No bowel obstruction or pneumoperitoneum. 3. Possible cholelithiasis without CT evidence of acute cholecystitis 4. Dilated common bile duct without obstructing stone or lesion identified. Correlate with serum bilirubin recommended. 5. There are several indeterminate small hepatic lesions which could be further evaluated with a nonemergent follow-up MRI of the liver with and without IV contrast ACT 112: Negative or not required by law. The above report was generated using voice recognition software. It may contain grammatical, syntax or spelling errors. Electronically signed by: Amado Tam M.D. 06/23/2024 8:30 AM Chest X-Ray 06/23/24 07:32 XR chest 1V portable CLINICAL HISTORY: N/V COMPARISON STUDY: 05/22/2009 FINDINGS: Heart size and pulmonary vasculature are normal. No effusion, consolidation, or pneumothorax. IMPRESSION: No acute findings. ACT 112: Negative or not required by law. Electronically signed by: Leo Gould M.D. 06/23/2024 8:09 AM Medications Administered Discontinued Medications Sodium Chloride (Nss) 1,000 mls @ 999 mls/hr IV .Q1H1M ONE Stop: 06/23/24 07:25 Last Infusion: 06/23/24 07:48 Dose: Infused Documented By: AVUlysses Admin: 06/23/24 06:29 Dose: 999 mls/hr Documented By: STEFAN Ioversol (Optiray 320 100ml) 94 ml IV ONCE ONE Stop: 06/23/24 07:53 Last Admin: 06/23/24 07:52 Dose: 94 ml Documented By: JAVIER Morphine Sulfate (Morphine Sulfate 4 Mg/Ml 1 Ml Carp\\Vial) 4 mg IV NOW STA Stop: 06/23/24 06:25 Last Admin: 06/23/24 06:29 Dose: 4 mg Documented By: STEFAN Morphine Sulfate (Morphine Sulfate 4 Mg/Ml 1 Ml Carp\\Vial) 4 mg IV NOW STA Stop: 06/23/24 07:27 Last Admin: 06/23/24 07:27 Dose: 4 mg Documented By: CHELY Ondansetron HCl (Ondansetron Inj 2 Mg/Ml 2 Ml Vial) 4 mg IV NOW STA Stop: 06/23/24 06:25 Last Admin: 06/23/24 06:29 Dose: 4 mg Documented By: STEFAN Supervising Physician Co-Signing Physician Notes 63-year-old lady with PMH of fibromyalgia depression and chronic pain presents to the ED with complaint of severe abdominal pain associated with nausea and vomiting and diarrhea since about 3 AM today. patient reports with pain medication and IV fluid in the ED, she has significantly improved. Labs and imagings reviewed. Leukocytosis noted, LFT WNL, troponin mildly elevated/will trend troponin, lipase WNL, UA negative for UTI. Hypokalemia noted, renal function fairly WNL. CTAP with suggestion of colitis, hepatic lesions [patient made aware to follow- up with PCP for outpatient MRI], CBD dilatation. Colitis: s/s has improved, will follow, iv atb, gen sx consult, npo. nausea control and pain mx. CBD dilatation: LFT wnl, Gen sx consult. US liver pending. Hypokalemia: replete 40 meq , monitor. Likely demand ischemia: trop elevated at 81, trended to 95, will trend x 2 more. get echo, tele monitoring. pt denies chest pain. EKG w/ no acute st or t changes. On Exam: GENERAL: Alert and oriented x3. NAD, on RA. HEENT: No pallor, no icterus. Pupils equal, round and reactive to light. Oral mucosa moist. NECK: No JVD, no neck masses. HEART: S1 and S2 heard. Regular rate and rhythm. No murmur, no gallop. RESPIRATORY SYSTEM: Normal AP diameter. No accessory muscle use. No wheezing, no crackles. ABDOMEN: Soft, bowel sounds present, nontender, no distention. CENTRAL NERVOUS SYSTEM: No facial droop. Speech is clear. Obeys simple commands. Moves extremities. EXTREMITIES: No edema, no erythema seen. I have seen and examined the patient and have discussed the case with the provider above. I agree with the assessment and plan as stated. Time spent independently: 30 min. (5) Depression Depression Type: unspecified Qualified Code(s): F32.A - Depression, unspecified
--- NOTE | 2024-06-23 10:59 | Surgery Consultation ---
<Statement entered by Chip Tran DO - 06/23/24 13:29> I have seen and examined this patient with the surgical team and I agree with this plan Date of Consultation June 23, 2024 Assessment & Plan (1) Colitis: Patient with c/o abd pain , nausea, vomiting acute onset early this AM. CT scan showing concern for non specific colitis "There is mild wall thickening noted throughout the majority of the large bowel with areas of mild pericolonic stranding, most pronounced in the transverse and descending colon" Currently the patient is in NAD, denies abd pain , n/v , VSS, afebrile . WBC slightly elevated at 13, Abd is soft , non distended, non TTP. Recommending, Keep NPO, may have sips/chips, IV Fluids for hydration and IV Antibiotics. Should have antiemetic and analgesics PRN. Medicine is admitting, General surgery will follow along. Pt seen and examined with Dr Tran (2) Common bile duct dilatation: LFT wnl CT scan showing poss. cholelithiasis ordered RUQ US CT scan non concerning for acute cholecystitis [place], [place] [phone] CT Scan Report Patient: LUIS ALBERTO MIRZA Admit Date: 06/23/24 MR#: [id number] Address1: [address] [place] [address] Acct ID:[id number] Address2: Date: 1955 [facility] Zip: [place] [address] Age: 69 Location: ED Sex: F Room/Bed: Att Phy: Diagnosis: UPPER ABDOMINAL PAIN, N/V/D Yenny Phy: PCP,NO Service Date: 06/23/24 Fam Phy: Interpreting Phy: Amado TamAdmit Phy: Ordering Phy: Stephon Nice DO cc: ~ ABDOMEN AND PELVIS CT WITH IV CONTRAST CT DOSE: 648.71 mGy.cm HISTORY: Acute mid abdominal pain with nausea, vomiting and diarrhea mid abd pain, N/V/D TECHNIQUE: Multiaxial CT images of the abdomen and pelvis were performed following the IV administration of 94 cc of Optiray, A dose lowering technique was utilized adhering to the principles of ALARA. COMPARISON STUDY: None. FINDINGS: Small pericardial effusion. There is no pneumatosis or pneumoperitoneum. Unremarkable spleen. There is mild nodular thickening of the adrenal glands suggestive of hyperplasia. Mildly atrophic pancreas with 1.2 cm hypodense focus in the uncinate process, possibly a side branch IPMN. 9 mm probable cyst within the right hepatic lobe on image 67 series 3. There are at least 4 indeterminate mostly subcentimeter hypodense foci of the liver measuring up to 1.2 cm on the right hepatic lobe on image 64 series 3. There is patency of the hepatic and portal veins. 8 mm hyperdense focus noted within the tavo hepatis near the gallbladder neck. Mild intrahepatic biliary ductal dilation. Common bile duct is dilated measuring 1.2 cm. No obstructing biliary stone or lesion identified. No hydronephrosis. Unremarkable urinary bladder. No pelvic lesions. Atherosclerosis of the aorta without aneurysm. Tiny hiatal hernia. No bowel obstruction. There is mild wall thickening noted throughout the majority of the large bowel with areas of mild pericolonic stranding, most pronounced in the transverse and descending colon. Normal appendix. Tiny fat filled umbilical hernia. Degenerative changes of the lower lumbar spine. IMPRESSION: 1. Findings suggestive of a nonspecific colitis, likely infectious or inflammatory. 2. No bowel obstruction or pneumoperitoneum. 3. Possible cholelithiasis without CT evidence of acute cholecystitis 4. Dilated common bile duct without obstructing stone or lesion identified. Correlate with serum bilirubin recommended. 5. There are several indeterminate small hepatic lesions which could be further evaluated with a nonemergent follow-up MRI of the liver with and without IV contrast ACT 112: Negative or not required by law. The above report was generated using voice recognition software. It may contain grammatical, syntax or spelling errors. Electronically signed by: Amado Tam M.D. 06/23/2024 8:30 AM Dictated: 06/23/24820 Transcribed: 06/23/24820 History of Present Illness Reason for Consultation: colitis, CBD dilation Requesting Physician: Dr Nice History of Present Illness Patient is a pleasant 69 yo female with PMH depression, arthritis, HLD, chronic pain that presented to the [facility] ER with c/o epigastric abdominal pain, nausea, vomiting, diarrhea that started 06/23/24 around 3am and awoken her from sleep. She states pain was severe and sharp which prompted her to seek care. Currently she is denying pain, nausea, or vomiting. She denies cp, sob, fever/chills. She underwent a abd/pelvis CT scan that is showing concerns for nonspecific colitis and CBD dilation without acute cholecystitis for which general surgery was consulted. Allergies Allergy/AdvReac Type Severity Reaction Status Date / Time meloxicam [From [employer]] AdvReac Diarrhea Verified 06/23/24 08:15 Home Medications Medication Instructions Recorded Confirmed Type fluoxetine 40 mg capsule 40 mg PO QAM 03/13/19 06/23/24 History estradiol 0.05 mg/24 hr semiweekly 0.05 patch topical Q3D 07/27/22 06/23/24 History transdermal patch trazodone 50 mg tablet 50 mg PO HS 07/27/22 06/23/24 History Patient History Medical History Abnormal mammogram Cervical high risk human papillomavirus (HPV) DNA test positive Diastasis of muscle Hormone replacement therapy (HRT) Hyperlipidemia Depression Fibromyalgia Atypical glandular cells on vaginal Papanicolaou smear HPV negative History of Lyme disease History of arthritis Surgical History History of right cataract surgery Hx of thumb surgery Hx of ventral hernia repair History of esophagogastroduodenoscopy (EGD) Hx of nasal septoplasty Hx of colonoscopy H/O colposcopy with cervical biopsy History of hysterectomy, supracervical History of back surgery H/O bilateral oophorectomy Family History Mother Sleep apnea Hyperlipidemia Daughter Bipolar disorder Father Myocardial infarction, Onset Age: 73 Pituitary carcinoma Grandmother (Maternal) Uterine cancer Denies family history of Ovarian cancer Breast cancer Colorectal cancer Social History Smoking Status: Former smoker Second Hand Exposure: No; Do You Dip or Chew Tobacco: No; Hx Alcohol Use: No Hx Substance Use: No Preferred Language: Norwegian Communication Ability: Effective Folder Seamer Automatic Required: No Beliefs That Will Affect Care: None Current Living Situation: Alone Feels Safe at Home: Yes Assistive Devices: Glasses Review of Systems Constitutional: no fever and no chills Respiratory: no dyspnea Cardiovascular: no chest pain Gastrointestinal: + abdominal pain, + nausea and + vomitin g Musculoskeletal: no muscle weakness Physical Exam Constitutional: cooperative and comfortable; no acute distress Respiratory: normal respiratory effort; no respiratory distress Cardiovascular: Rate/Rhythm: regular rate Gastrointestinal (Abdomen): Inspection/Auscultation: abdomen not distended Percussion/Palpation: abdomen soft; abdomen nontender Musculoskeletal: no cyanosis or clubbing, extremities motor strength 5/5 Results & Data Vital Signs (Past 12 Hours) Vital Signs Pulse Pulse Resp BP BP Pulse Ox O2 Del Method 06/23/24 10:14 84 06/23/24 09:00 51 L 12 118/59 L 94 Room Air 06/23/24 06:30 56 L 19 139/77 100 Room Air 06/23/24 06:12 72 06/23/24 05:47 63 19 124/66 99 Room Air Results CBC w Diff Results: RBC 4.73 M/uL (4.20-5.40) 06/23/24 WBC 13.13 K/ul (4.8-10.8) H 06/23/24 Hgb 13.5 g/dl (12.0-16.0) 06/23/24 Hct 39.6 % (37.0-47.0) 06/23/24 MCV 83.7 fL (80.0-100.0) 06/23/24 MCH 28.5 pg (25.0-34.0) 06/23/24 MCHC 34.1 g/dL (32.0-36.0) 06/23/24 RDW Standard Deviation 38.5 fL (36.4-46.3) 06/23/24 RDW Coefficient of Variation 12.6 % (11.5-14.5) 06/23/24 Plt Count 343 K/uL (130-400) 06/23/24 MPV 9.8 fL (9.4-12.4) 06/23/24 Neutrophils (%) (Auto) 85.6 % 06/23/24 Lymphocytes (%) (Auto) 8.5 % 06/23/24 Monocytes # (Auto) 0.63 K/uL (0.11-0.59) H 06/23/24 Eosinophils # (Auto) 0.02 K/uL (0.00-0.50) 06/23/24 Immature Granulocyte % (Auto) 0.4 % 06/23/24 Neutrophils # (Auto) 11.26 K/uL (1.40-6.50) H 06/23/24 Lymphocytes # (Auto) 1.11 K/uL (1.20-3.40) L 06/23/24 Monocytes # (Auto) 0.63 K/uL (0.11-0.59) H 06/23/24 Eosinophils # (Auto) 0.02 K/uL (0.00-0.50) 06/23/24 Basophils # (Auto) 0.06 K/uL (0.00-0.20) 06/23/24 Immature Granulocyte # (Auto) 0.05 K/uL (0.01-0.20) 5 PG Care Time/CCT Total # of Minutes Spent Total Time Spent with Patient: Total time spent is greater than 50% in coordination of care (as documented) at patient's floor/unit and/or counseling patient: Coding Level of Care Code 74108 IN/OBS CONSULT LVL 2,35M Diagnoses Colitis K52.9 Common bile duct dilatation K83.8
[2024-06-23] MEDS ORDERED: ONDANSETRON INJ 2 MG/ML 2 ML VIAL IV PRN (13:51)
[2024-06-23] MEDS ORDERED: oxyCODONE HCL IR 5 MG TAB (IMMEDIATE RELEASE) PO PRN (13:56)
--- NOTE | 2024-06-23 15:46 | Ultrasound Report ---
US gallbladder CLINICAL HISTORY: Epigastric pain. Evaluate for cholelithiasis. COMPARISON STUDY: CT of the abdomen and pelvis performed earlier today. FINDINGS: Small to moderate pericardial effusion is partially imaged on this exam. Liver morphology i s normal. Several echogenic hepatic lesions measure up to 1.3 cm. These correspond to the lesions on CT performed earlier today. Caliber of the common bile duct is normal. The common hepatic duct is pro minent, measuring 9 mm in caliber. No common bile duct calculi identified. No gallstones are present. There is a tiny 2 mm gallbladder polyp. No gallbladder wall thickening. No sonographic Zamora sign w as elicited. Pancreatic body was normal. Head and tail were obscured. There is no right hydronephrosi s. IMPRESSION: 1. No gallstones. Normal caliber common bile duct. No evidence for acute cholecystitis. 2. Several echogenic hepatic lesions which measure up to 1.3 cm which correspond to the lesions on CT performed earlier today. These favor hemangiomas. Correlation with prior imaging studies, if availab le, is recommended. 3. Small to moderate pericardial effusion, partially imaged on this exam. ACT 112: Negative or not required by law. Electronically signed by: Estevan Faye M.D. 06/23/2024 3:44 PM
[2024-06-23] MEDS: SODIUM CHLORIDE 0.9% 1,000 ML IV SCH (16:18)
[2024-06-23] MEDS: ACETAMINOPHEN 500 MG TAB PO PRN (17:13)
[2024-06-23] MEDS: POTASSIUM CHLORIDE CRTAB 20 MEQ TABCR PO STA (17:45)
[2024-06-23 21:00] LABS: Troponin I High Sensitivity 60.9 pg/ml (0-14)
[2024-06-23] MEDS: traZODone HCL 50 MG TAB PO SCH (21:18)
--- NOTE | 2024-06-24 07:41 | Hospitalist Progress Note ---
Date of Service June 24, 2024 Assessment & Plan (1) Colitis: (2) Common bile duct dilatation: (3) Elevated troponin: (4) Lesion of liver: (5) Depression: Plan This is a 69 y/o female with fibromyalgia, depression, and chronic pain who presents to the ED today with abdominal pain, vomiting, and diarrhea that started abruptly around 2:30 am today. Work-up in the ED revealed leukocytosis with white count of 13.13. CT abd/pel showed non-specific colitis, hepatic lesions, and CBD dilation. Outpatient records reviewed extensively (see HPI) - liver lesions and CBD dilation are not new, present on EUS and MRI in 2019. Pt was due for f/u MRI pancreas/MRCP in 2021 but never had this completed. Initial troponin elevated at 81, repeat 95.1. Pt was referred for observation and further evaluation and management. Abdominal pain/vomiting/diarrhea Nonspecific colitis on CT - suspect viral infectious etiology Stool culture uncollected as diarrhea subsided Gen surgery evaluated - advanced to low fiber diet, improving. CBD dilation may be normal variant for patient. No surgical needs now, to sign off. RUQ US without gall stones. Normal caliber common bile duct. No evidence for acute cholecystitis. Several echogenic hepatic lesions which measure up to 1.3, favor hemangiomas CT abd/pelvis findings suggestive of a nonspecific colitis, likely infectious or inflammatory. No bowel obstruction or pneumoperitoneum. Possible cholelithiasis without CT evidence of acute cholecystitis. Dilated common bile duct without obstructing stone or lesion identified AM labs with stable lytes, LFTs within normal limits, Tbili normal, lipase normal PRN antiemetics, analgesics, IVF Adding Protonix for epigastric discomfort, advance diet as tolerated Liver lesions - noted on prior EUS Will need outpatient GI f/u, which pt is agreeable to Elevated troponin - suspect demand related to acute illness HS troponin 95 -> 61.8 -> 60.9 -> 18.1 EKG in the AM NSR, no changes 2D echo with normal wall motion, EF 65-70%, small-moderate pericardial effusion greatest in posterior aspect with moderate organization. No evidence of tamponade No chest pain or EKG changes, troponin downtrending. Follow up with PCP for continued monitoring of asymptomatic pericardial effusion Will repeat EKG once more in AM to ensure Lipid panel WNL, A1c 5.5 Hypokalemia Replete with 40 mEq and recheck in the AM Depression Chronic, stable - continue fluoxetine DVT prophylaxis: SQ heparin Code status: FULL CODE PCP: JANET Trinh Dispo: obs med tele, plan to dc tomorrow AM if abdominal pain resolved Patient seen in collaboration with Dr. Norman. Please see addendum. I spent a total of 50 minutes coordinating, documenting, and providing care for this patient excluding time spent in the performance of separately billed services or time spent by another provider/QHP. Admission and Anticipated Discharge Date Admission Date: June 23, 2024 Supervising Physician Co-Signing Physician Notes Attending addendum: The patient was seen and examined in medical telemetry unit She was admitted with epigastric/abdominal pain associate with nausea Noted to have nonspecific colitis on CAT scan and she has been feeling better since admission On examination Lying in bed without any acute distress Remains hemodynamically stable with unremarkable physical examination except minimal tenderness in the right lower quadrant and in the epigastrium Her admission labs, medications and imaging studies reviewed She has nonspecific colitis and further studies are pending but doubt any infective cause and also epigastric pain suggestive of cardiac in origin. She will be ruled out and also echocardiogram will be done Agree with assessment and plan as outlined above by Lissa George PA-C and take the full responsibility care in the hospital. Total time taken to document all this was [address] Nazanin Norman Subjective Patient seen and examined this AM. Feeling much better. No recurrent nausea, vomiting or diarrhea. Still with some epigastric TTP. No F/C, lightheadedness, CP, SOB, dysuria, diarrhea or constipation. Review of Systems Review of Systems: At least ten systems reviewed and negative except as noted in the HPI. Physical Exam Physical Exam: Gen: WD/WN, NAD, resting in bed comfortably, A&Ox3 HEENT: Normocephalic, atraumatic, conjunctivae moist, sclerae anicteric, mucous membranes moist Lung: Clear to Auscultation bilaterally, no wheezes/rales/rhonchi Heart: Regular rate, regular rhythm, no murmurs, rubs, or gallops Abdomen: Soft, epigastric TTP, ND +BS x 4 Extremities: no edema Skin: Warm, no rash Results & Data Results & Data Vital Signs (Past 12 Hours) Vital Signs Temp Pulse Pulse Resp BP Pulse Ox O2 Del Method 06/24/24 07:09 62 06/24/24 03:08 36.7 C 80 16 92/53 L 93 Room Air 06/23/24 22:33 36.8 C 69 18 92/50 L 94 Room Air 06/23/24 21:51 66 Laboratory Results Urine 06/23/24 Range/Units 08:27 Urine Color Yellow Urine Appearance Clear (Clear) Urine pH 7.5 (4.5-7.5) Ur Specific [place] 1.034 H (1.000-1.030) Urine Protein Negative (Negative) Urine Glucose (UA) Negative (Negative) Diagnostic Findings Abdomen/Pelvis CT 06/23/24 07:[address] WITH IV CONTRAST CT DOSE: 648.71 mGy.cm HISTORY: Acute mid abdominal pain with nausea, vomiting and diarrhea mid abd pain, N/V/D TECHNIQUE: Multiaxial CT images of the abdomen and pelvis were performed following the IV administration of 94 cc of Optiray, A dose lowering technique was utilized adhering to the principles of ALARA. COMPARISON STUDY: None. FINDINGS: Small pericardial effusion. There is no pneumatosis or pneumoperitoneum. Unremarkable spleen. There is mild nodular thickening of the adrenal glands suggestive of hyperplasia. Mildly atrophic pancreas with 1.2 cm hypodense focus in the uncinate process, possibly a side branch IPMN. 9 mm probable cyst within the right hepatic lobe on image 67 series 3. There are at least 4 indeterminate mostly subcentimeter hypodense foci of the liver measuring up to 1.2 cm on the right hepatic lobe on image 64 series 3. There is patency of the hepatic and portal veins. 8 mm hyperdense focus noted within the tavo hepatis near the gallbladder neck. Mild intrahepatic biliary ductal dilation. Common bile duct is dilated measuring 1.2 cm. No obstructing biliary stone or lesion identified. No hydronephrosis. Unremarkable urinary bladder. No pelvic lesions. Atherosclerosis of the aorta without aneurysm. Tiny hiatal hernia. No bowel obstruction. There is mild wall thickening noted throughout the majority of the large bowel with areas of mild pericolonic stranding, most pronounced in the transverse and descending colon. Normal appendix. Tiny fat filled umbilical hernia. Degenerative changes of the lower lumbar spine. IMPRESSION: 1. Findings suggestive of a nonspecific colitis, likely infectious or inflammatory. 2. No bowel obstruction or pneumoperitoneum. 3. Possible cholelithiasis without CT evidence of acute cholecystitis 4. Dilated common bile duct without obstructing stone or lesion identified. Correlate with serum bilirubin recommended. 5. There are several indeterminate small hepatic lesions which could be further evaluated with a nonemergent follow-up MRI of the liver with and without IV contrast ACT 112: Negative or not required by law. The above report was generated using voice recognition software. It may contain grammatical, syntax or spelling errors. Electronically signed by: Amado Tam M.D. 06/23/2024 8:30 AM Chest X-Ray 06/23/24 07:32 XR chest 1V portable CLINICAL HISTORY: N/V COMPARISON STUDY: 05/22/2009 FINDINGS: Heart size and pulmonary vasculature are normal. No effusion, consolidation, or pneumothorax. IMPRESSION: No acute findings. ACT 112: Negative or not required by law. Electronically signed by: Leo Gould M.D. 06/23/2024 8:09 AM Gallbladder Ultrasound 06/23/24 13:05 US gallbladder CLINICAL HISTORY: Epigastric pain. Evaluate for cholelithiasis. COMPARISON STUDY: CT of the abdomen and pelvis performed earlier today. FINDINGS: Small to moderate pericardial effusion is partially imaged on this exam. Liver morphology is normal. Several echogenic hepatic lesions measure up to 1.3 cm. These correspond to the lesions on CT performed earlier today. Caliber of the common bile duct is normal. The common hepatic duct is prominent, measuring 9 mm in caliber. No common bile duct calculi identified. No gallstones are present. There is a tiny 2 mm gallbladder polyp. No gallbladder wall thickening. No sonographic Zamora sign was elicited. Pancreatic body was normal. Head and tail were obscured. There is no right hydronephrosis. IMPRESSION: 1. No gallstones. Normal caliber common bile duct. No evidence for acute cholecystitis. 2. Several echogenic hepatic lesions which measure up to 1.3 cm which correspond to the lesions on CT performed earlier today. These favor hemangiomas. Correlation with prior imaging studies, if available, is recommended. 3. Small to moderate pericardial effusion, partially imaged on this exam. ACT 112: Negative or not required by law. Electronically signed by: Estevan Faye M.D. 06/23/2024 3:44 PM (5) Depression Depression Type: unspecified Qualified Code(s): F32.A - Depression, unspecified
[2024-06-24 08:10] LABS: Albumin Level 3.8 gm/dl (3.4-5.0); BUN Creatinine Ratio 12.9 (10-20); Bilirubin Direct 0.1 mg/dl (0-0.2); Bilirubin,Total 0.6 mg/dl (0.2-1.0); Calcium 8.2 mg/dl (8.6-10.3); Chol HDL Ratio 3.1 (0-5); Creatinine Clr Calc Pharmacy 60.1 ml/min; Potassium 3.9 mmol/L (3.5-5.1)
[2024-06-24 08:35] LABS: Basophils # (auto) 0.05 K/uL (0.00-0.20); Basophils % (auto) 0.6 %; Eosinophils # (auto) 0.14 K/uL (0.00-0.50); Eosinophils % (auto) 1.7 %; Hematocrit (blood only) 38.3 % (37.0-47.0); Hemoglobin 12.8 g/dl (12.0-16.0); Immature Granulocytes # (auto) 0.02 K/uL (0.01-0.20); Immature Granulocytes % (auto) 0.2 %; Lymphocytes # (auto) 2.19 K/uL (1.20-3.40); Lymphocytes % (auto) 26.3 %; Mean Corpuscular Hemoglobin 28.6 pg (25.0-34.0); Mean Corpuscular Hgb Conc 33.4 g/dL (32.0-36.0); Mean Corpuscular Volume 85.7 fL (80.0-100.0); Mean Platelet Volume 10.5 fL (9.4-12.4); Monocytes # (auto) 0.68 K/uL (0.11-0.59); Monocytes % (auto) 8.2 %; Neutrophils # (auto) 5.24 K/uL (1.40-6.50); Platelet Count 251 K/uL (130-400); RDW Coefficient of Variation 13.5 % (11.5-14.5); RDW Standard Deviation 42.3 fL (36.4-46.3); Red Blood Count 4.47 M/uL (4.20-5.40); White Blood Count 8.32 K/ul (4.8-10.8)
--- NOTE | 2024-06-24 08:57 | Surgery Progress Note ---
Date of Service June 24, 2024 Assessment & Plan (1) Common bile duct dilatation: (2) Colitis: Plan No gallstones seen on US. No concern for acute cholecystitis or CBD involvement from stones. LFTs have remained WNL and patient is asymptomatic. CBD dilation may be a normal variant for her. She has no abdominal pain. She may be started on a low fiber diet and may discharge from a surgical perspective. Medical issues per medicine who will determine discharge and communicate to the patient any other incidental findings on her imaging for follow up if needed. No need for follow up with surgery at this time. Please message or call if questions for surgery. Admission and Anticipated Discharge Date Admission Date: June 23, 2024 Subjective Pt states she feels much better than yesterday. She is without pain or nausea, no symptoms at this time and feels her usual baseline. No acute events o/n Physical Exam Constitutional: average body habitus; not ill appearing, not in distress and not diaphoretic Respiratory: normal respiratory effort; no respiratory distress, no labored breathing and does not use accessory muscles Gastrointestinal (Abdomen): Inspection/Auscultation: abdomen normal to inspection; abdomen not distended Percussion/Palpation: abdomen soft; abdomen nontender and no guarding Results & Data Vital Signs (Past 12 Hours) Vital Signs Temp Pulse Pulse Resp BP Pulse Ox O2 Del Method 06/24/24 07:55 36.7 C 83 18 105/66 92 Room Air 06/24/24 07:09 62 06/24/24 03:08 36.7 C 80 16 92/53 L 93 Room Air 06/23/24 22:33 36.8 C 69 18 92/50 L 94 Room Air 06/23/24 21:51 66 PG Care Time/CCT Total # of Minutes Spent Total Time Spent with Patient: Total time spent is greater than 50% in coordination of care (as documented) at patient's floor/unit and/or counseling patient: Coding Level of Care Code 63191 SUB INP/OBS CARE 03/29MIN Diagnoses Common bile duct dilatation K83.8 Colitis K52.9
[2024-06-24 09:41] LABS: Estimated Average Glucose 111 mg/dl; Hemoglobin A1C 5.5 % (4.5-5.6)
--- NOTE | 2024-06-24 10:25 | Electrocardiogram Report ---
Test Reason : Blood Pressure : */* mmHG Vent. Rate : 60 BPM Atrial Rate : 60 BPM P-R Int : 138 ms QRS Dur : 76 ms QT Int : 430 ms P-R-T Axes : 56 7 32 degrees QTcB Int : 430 ms Normal sinus rhythm with sinus arrhythmia Normal ECG When compared with ECG of 23-Jun-2024 06:33, QT has shortened Confirmed by Silviano Delvalle ([id number]) on 06/24/2024 10:25:08 AM Referred By: REFERRED SELF Confirmed By: Silviano Delvalle
[2024-06-24] MEDS: FLUoxetine HCL 20 MG CAP PO SCH (11:16)
[2024-06-24 17:45] LABS: Adenovirus F 40/41 PCR Not Detected (NotDetected); Astrovirus PCR Not Detected (NotDetected); Campylobacter PCR Not Detected (NotDetected); Cryptosporidium PCR Not Detected (NotDetected); Cyclospora cayetanensis PCR Not Detected (NotDetected); Entamoeba histolytica PCR Not Detected (NotDetected); Enteroaggregative E.coli(EAEC) Not Detected (NotDetected); Enteropathogenic E.coli (EPEC) Not Detected (NotDetected); Enterotoxigenic E.coli (ETEC) Not Detected (NotDetected); Giardia lamblia PCR Not Detected (NotDetected); Norovirus GI/GII PCR Not Detected (NotDetected); Plesiomonas shigelloides PCR Not Detected (NotDetected); Rotavirus A PCR Not Detected (NotDetected); Salmonella PCR Not Detected (NotDetected); Sapovirus PCR Not Detected (NotDetected); Shiga-like Toxin E.coli (STEC) Not Detected (NotDetected); Shigella/Enteroinvasive E.coli Not Detected (NotDetected); Vibrio cholerae PCR Not Detected (NotDetected); Vibrio species PCR Not Detected (NotDetected); Yersinia enterocolitica PCR Not Detected (NotDetected)
[2024-06-24 19:28] VITALS: RESP 18
[2024-06-24] MEDS: PANTOprazole 40 MG TAB PO SCH (20:59)
[2024-06-25 08:02] LABS: Hematocrit (blood only) 36.3 % (37.0-47.0); Hemoglobin 12.3 g/dl (12.0-16.0); Mean Corpuscular Hemoglobin 28.3 pg (25.0-34.0); Mean Corpuscular Hgb Conc 33.9 g/dL (32.0-36.0); Mean Corpuscular Volume 83.6 fL (80.0-100.0); Mean Platelet Volume 9.8 fL (9.4-12.4); Platelet Count 245 K/uL (130-400); RDW Coefficient of Variation 13.4 % (11.5-14.5); RDW Standard Deviation 41.2 fL (36.4-46.3); Red Blood Count 4.34 M/uL (4.20-5.40); White Blood Count 6.35 K/ul (4.8-10.8)
[2024-06-25 08:28] LABS: BUN Creatinine Ratio 10.5 (10-20); Calcium 8.2 mg/dl (8.6-10.3); Creatinine Clr Calc Pharmacy 59.4 ml/min; Potassium 3.7 mmol/L (3.5-5.1)
--- NOTE | 2024-06-25 10:31 | Electrocardiogram Report ---
Test Reason : Blood Pressure : */* mmHG Vent. Rate : 63 BPM Atrial Rate : 63 BPM P-R Int : 154 ms QRS Dur : 80 ms QT Int : 432 ms P-R-T Axes : 54 20 32 degrees QTcB Int : 442 ms Normal sinus rhythm Normal ECG When compared with ECG of 24-Jun-2024 05:18, No significant change was found Confirmed by Silviano Delvalle ([id number]) on 06/25/2024 10:31:11 AM Referred By: REFERRED SELF Confirmed By: Silviano Delvalle
[2024-06-25 11:12] VITALS: BP 123/75; TEMP 97.9; O2SAT 95
[2024-06-25 11:26] VITALS: PULSE 68
--- NOTE | 2024-06-25 11:47 | Discharge Summary ---
Discharge Summary Date of Service June 25, 2024 Principal Dx & Hospital Course #1 = Principal Diagnosis (1) Colitis: (2) Common bile duct dilatation: (3) Elevated troponin: (4) Lesion of liver: (5) Depression: Plan This is a 69 y/o female with fibromyalgia, depression, and chronic pain who presents to the ED today with abdominal pain, vomiting, and diarrhea that started abruptly around 2:30 am today. Work-up in the ED revealed leukocytosis with white count of 13.13. CT abd/pel showed non-specific colitis, hepatic lesions, and CBD dilation. Outpatient records reviewed - liver lesions and CBD dilation are not new, present on EUS and MRI in 2019. Pt was due for f/u MRI pancreas/MRCP in 2021 but never had this completed. During admission, nausea and vomiting subsided. Diarrhea still resolving. Stool cultures negative. Suspect foodborne illness. Epigastric pain resolving but still mild after eating. Tolerating bland foods, advance diet as tolerated at home. Recommend routine GI follow up for known liver lesions, epigastric discomfort. Continue trial of daily Protonix to see if symptoms resolve. When admitted, patient had troponin elevation of 95 which downtrended back to normal overnight. Suspect demand ischemia in setting of acute GI illness as above. ECG with normal sinus rhythm, no acte ST changes. 2D echo with normal wall motion, EF 65-70%, small-moderate pericardial effusion greatest in posterior aspect with moderate organization. No evidence of tamponade. No previous outpatient echo to compare to. No chest pain or ECG changes on repeat ECG in AM. Lipid panel and a1c within normal limits. Follow up with PCP for outpatient stress test. Patient does not want to start aspirin/statin until further workup completed as an outpatient. Patient hemodynamically stable and comfortable for discharge home. Notes For Next Care Provider Epigastric pain, NVD and colitis 2/2 suspected foodborne illness Medication Changes From Visit Protonix daily until GI follow up, PRN imodium Admission HPI Per Admitting Provider This is a 69 y/o female with fibromyalgia, depression, and chronic pain who presents to the ED today with abdominal pain, vomiting, and diarrhea that started abruptly around 2:30 am today. She reports being in her usual state of health yesterday. This morning around 2:30 she was awoken from sleep with the urge to defecate. Went to the bathroom and had large BM. Shortly thereafter, she developed nausea and multiple episodes of emesis then epigastric pain and another episode of diarrhea. She denies fevers, chills, sweats, chest pain, palpitations. She has a history of "bowel issues" but is typically able to control these with her diet (follows a Mediterranean diet at baseline). She notes some fatigue but also spent yesterday working around the house. In the ED, she received ondansetron and morphine with improvement of her symptoms. She denies prior cardiac history. She works out regularly and has noted no recent change in her exercise tolerance. 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 Follow-up MRI with MRCP recommended in 6 months for reassessment. Liver lesions are compatible with cysts and hemangiomas. EUS 02/20/20 - EGD completely normal. Duodenal biopsies obtained to rule out celiac disease. - Small cysts in head of pancreas; benign in appearance, consistent with IPMN. No pancreatic masses. - No pancreatic mass. Mild atrophy of pancreas. Dilation in the CBD, which measured up to 8 mm Colonoscopy 12/15/19 - fair preparation, stool in entire colon. exam o/w normal on direct and retroflexion views. Recommended to have repeat in 2 years. Admission Exam Per Admitting Provider General: awake, alert, NAD HEENT: no scleral icterus, moist oral mucosa Neck: supple, trachea midline Heart: RRR, no M/G/R Lungs: CTA bilaterally, no W/R/R Abdomen: soft, mild epigastric tenderness, +BS, no guarding or rebound Extremities: no pedal edema, distal pulses intact and equal Skin: warm, no jaundice Neurologic: Ox3, no confusion or dysarthria, moving all extremities, no focal deficit Discharge Exam Gen: WD/WN, NAD, resting in bed comfortably, A&Ox3 HEENT: Normocephalic, atraumatic, conjunctivae moist, sclerae anicteric, mucous membranes moist Lung: Clear to Auscultation bilaterally, no wheezes/rales/rhonchi Heart: Regular rate, regular rhythm, no murmurs, rubs, or gallops Abdomen: Soft, epigastric TTP, ND +BS x 4 Extremities: no edema Skin: Warm, no rash Updated Medication List Medication Instructions Recorded Confirmed Type fluoxetine 40 mg capsule 40 mg PO QAM 03/13/19 06/23/24 History estradiol 0.05 mg/24 hr semiweekly 0.05 patch topical Q3D 07/27/22 06/23/24 History transdermal patch trazodone 50 mg tablet 50 mg PO HS 07/27/22 06/23/24 History pantoprazole 40 mg tablet,delayed 40 mg PO DAILY 4 weeks #28 tabs 06/25/24 Rx release (Protonix) Hospital Stay Data Consultations 06/23/24 10:03 Consult General Surgery Routine 06/23/24 10:21 ED Decision to Admit Stat Diagnostic Imagining Performed 06/23/24 07:21 CT Abd and Pelvis [CT abd pelvis IV con only] Stat 06/23/24 13:05 US gallbladder Stat Pending Results Patient Have Any Pending Studies at Discharge: No Discharge Instructions Given to Patient (Per Discharging Provider) You were admitted for upper abdominal pain, nausea and vomiting. CT abd/pelvis showed non-specific colitis. RUQ US without gall stones. Normal caliber common bile duct. No evidence for acute cholecystitis. Several echogenic hepatic lesions which measure up to 1.3, favor hemangiomas. Stool culture was negative. Continue Protonix for until GI follow up for epigastric discomfort. Can take Imodium as needed for diarrhea, which has improved. RECOMMENDATIONS FOR FOLLOW-UP: Follow up with PCP as scheduled. GI referral placed for known liver lesions, epigastric discomfort. Recommend PCP arrange outpatient cardiac stress test due to elevated troponin during admission in setting of acute illness. Lipid panel and a1c within normal limits. Continue medication regimen as scheduled aside from changes noted above. OTHER INSTRUCTIONS: Seek medical attention if you have: * temperature above 101 * chest pain or trouble breathing * abdominal pain, nausea, vomiting * diarrhea, dark stools or bloody stools * any unanswered questions or concerns Call 911 if symptoms are severe. Please take good care of yourself. Call if you have any questions or problems. You can reach a [facility] [address] hospitalist on duty at [facility] 24 hours a day by calling [phone]. Total Time Total Time Spent Total Time Spent (In Minutes): 45 Supervising Physician Co-Signing Physician Notes Patient seen and examined at bedside. She reports that her pain has resolved. She continues to have infrequent episode of loose bowel movement. Tolerating diet well. I discussed regarding stress test as outpatient after follow-up with PCP which she is agreeable with. I have reviewed the advanced practitioner's documentation, and I agree with, and take responsibility for the plan of care I spent a total of 20 minutes coordinating, documenting, and providing care for this patient excluding time spent in the performance of separately billed services. All of the aforementioned completed while collaborating with the assigned advanced practitioner for a full treatment plan
== END 2024-06-25 13:56 | disposition home or self-care (01) ==
LOC: ED 06:00 → 2N 06:00 → SUATTDRO 12:10 → 2N 13:01